=== PATIENT | male | born 1945 | race African-American/Black ===

== ENCOUNTER 2016-12-21 00:01 | Emergency (ER) | payer MEDICAID, MEDICARE ==
[~2016-12-21] VITALS: Ht 180.3 cm; Wt 90.0 kg
[2016-12-21 00:03] VITALS: Ht 180.3 cm; Wt 90.0 kg
[2016-12-21] MEDS ORDERED: ASPIRIN 81 MG TAB PO STA (00:39)
[2016-12-21 00:58] LABS: ADD SCAN DIFF NO
[2016-12-21 01:00] VITALS: BP 106/88; PULSE 60; RESP 16; TEMP 98
[2016-12-21 01:00] LABS: BASOPHILS % 0.6 % (0.0-2.0); EOSINOPHILS # 0.2 10^3/ul (0.0-0.5); EOSINOPHILS % 3.1 % (0.0-7.0); HEMATOCRIT 47.5 % (42.0-52.0); HEMOGLOBIN 15.4 g/dl (14.0-18.0); LYMPHOCYTES # 0.9 10^3/ul (0.8-2.9); LYMPHOCYTES % 19.7 % (15.0-51.0); MEAN CORPUSCULAR HEMOGLOBIN 31.7 pg (29.0-33.0); MEAN CORPUSCULAR HGB CONC 32.4 g/dl (32.0-37.0); MEAN CORPUSCULAR VOLUME 97.7 fl (82.0-101.0); MEAN PLATELET VOLUME 9.8 fl (7.4-10.4); MONOCYTE # 0.4 10^3/ul (0.3-0.9); NEUTROPHIL # 3.2 10^3/ul (1.6-7.5); NEUTROPHILS % 67.2 % (39.0-77.0); PLATELET COUNT 170 10^3/UL (140-415); RED BLOOD COUNT 4.86 10^6/ul (4.70-6.10); WHITE BLOOD COUNT 4.8 10^3/ul (4.8-10.8)
[2016-12-21 01:10] LABS: INR 1.02; PROTIME 13.4 Sec (12.2-14.2)
[2016-12-21 01:11] LABS: PARTIAL THROMBOPLASTIN TIME 27.7 Sec (25.0-35.0)
[2016-12-21 01:14] LABS: ALANINE AMINOTRANSFERASE 74 IU/L (13-69); ALBUMIN 4.6 g/dl (3.3-4.9); ALBUMIN/GLOBULIN RATIO 1.15; ALKALINE PHOSPHATASE 94 IU/L (42-121); ANION GAP 14 (8-16); ASPARTATE AMINO TRANSFERASE 107 IU/L (15-46); BILIRUBIN,INDIRECT 1.4 mg/dl (0-1.1); BILIRUBIN,TOTAL 1.4 mg/dl (0.2-1.3); BLOOD UREA NITROGEN 23 mg/dl (7-20); CALCIUM 9.1 mg/dl (8.4-10.2); CARBON DIOXIDE 24 mmol/L (21-31); CHLORIDE 102 mmol/L (97-110); CREATININE 1.92 mg/dl (0.61-1.24); GLUCOSE 129 mg/dl (70-220); POTASSIUM 4.8 mmol/L (3.5-5.1); SODIUM 135 mmol/L (135-144); TOTAL PROTEIN 8.6 g/dl (6.1-8.1)
[2016-12-21 01:26] LABS: B-TYPE NATRIURETIC PEPTIDE 1230 PG/ML (0-125)
[2016-12-21 01:30] LABS: TROPONIN-I < 0.012 ng/ml (0.00-0.12)
--- NOTE | 2016-12-21 01:49 | RADRPT ---
PROCEDURE: Chest. CLINICAL INDICATION: Chest pain. TECHNIQUE: Single frontal view of the chest was obtained. COMPARISON: None. FINDINGS: There is a left-sided pacemaker. The cardiac silhouette is enlarged. The aortic arch is unremarkab le. There is no focal consolidation, vascular congestion or pleural effusion. There is no pneumoth orax. IMPRESSION: Mild cardiomegaly. .Michi Cosby MD, MD Date Time Electronically viewed and signed by .Michi Cosby MD, MD on 12/21/2016 01:49 .T/
--- NOTE | 2016-12-21 01:55 | ERA ---
ER Documentation Chief Complaint Date/Time DATE: 12/21/16 TIME: 01:29 Chief Complaint Abdominal pain HPI 71-year-old male with an extensive cardiac history including multiple MIs with CHF with low ejection fraction s/p AICD presenting to the ER by ambulance after having an episode of nausea, dizziness, and diaphoresis. He was sitting in a restaurant with his when he suddenly felt ill. His states that he became really pale and looked like he was about to pass out. The patient denies any associated abdominal pain although this was listed as the chief complaint. He states that what he felt in his abdomen was nausea. He denies any associated chest pain or shortness of breath. He denies any headache. No recent fevers or chills. He is compliant with all of his medications. 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 Capps. ROS All systems reviewed and are negative except as per history of present illness. PMhx/Soc History of Surgery: No Anesthesia Reaction: No Hx Neurological Disorder: No Hx Respiratory Disorders: No Hx Cardiac Disorders: Yes (HTN, Stent 2, pacemaker,ACID) Hx Psychiatric Problems: No Hx Miscellaneous Medical Probl: No Hx Alcohol Use: No Hx Substance Use: No Hx Tobacco Use: No Smoking Status: Former smoker FmHx Family History: No diabetes Physical Exam Vitals Vital Signs Date Time Temp Pulse Resp B/P Pulse Ox O2 Delivery O2 Flow Rate FiO2 12/21/16 00:03 98.0 60 16 104/80 100 Physical Exam Const: Well-appearing, no apparent distress Head: Atraumatic Eyes: Normal Conjunctiva ENT: Normal External Ears, Nose and Mouth. Neck: Full range of motion. No meningismus. Resp: Coarse breath sounds bilaterally, expiratory wheezing throughout. Cardio: Regular rate and rhythm, no murmurs. 2+ radial pulses equal bilaterally Abd: Soft, non tender, non distended. Normal bowel sounds Skin: No petechiae or rashes Back: No midline or flank tenderness Ext: No cyanosis, or edema Neur: Awake and alert Psych: Normal Mood and Affect Result Diagram: 12/21/16 0005 12/21/16 0005 Results 24 hrs Laboratory Tests Test 12/21/16 00:05 White Blood Count 4.810^3/ul Red Blood Count 4.8610^6/ul Hemoglobin 15.4g/dl Hematocrit 47.5% Mean Corpuscular Volume 97.7fl Mean Corpuscular Hemoglobin 31.7pg Mean Corpuscular Hemoglobin Concent 32.4g/dl Red Cell Distribution Width 13.0% Platelet Count 12451^3/UL Mean Platelet Volume 9.8fl Neutrophils % 67.2% Lymphocytes % 19.7% Monocytes % 9.0% Eosinophils % 3.1% Basophils % 0.6% Nucleated Red Blood Cells % 0.0/100WBC Neutrophils # 3.210^3/ul Lymphocytes # 0.910^3/ul Monocytes # 0.410^3/ul Eosinophils # 0.210^3/ul Basophils # 0.010^3/ul Nucleated Red Blood Cells # 0.010^3/ul Prothrombin Time 13.4Sec Prothrombin Time Ratio 1.0 INR International Normalized Ratio 1.02 Activated Partial Thromboplast Time 27.7Sec Sodium Level 135mmol/L Potassium Level 4.8mmol/L Chloride Level 102mmol/L Carbon Dioxide Level 24mmol/L Anion Gap 14 Blood Urea Nitrogen 23mg/dl Creatinine 1.92mg/dl Glucose Level 129mg/dl Calcium Level 9.1mg/dl Total Bilirubin 1.4mg/dl Direct Bilirubin 0.00mg/dl Indirect Bilirubin 1.4mg/dl Aspartate Amino Transf (AST/SGOT) 107IU/L Alanine Aminotransferase (ALT/SGPT) 74IU/L Alkaline Phosphatase 94IU/L Troponin I < 0.012ng/ml B-Type Natriuretic Peptide 1230PG/ML Total Protein 8.6g/dl Albumin 4.6g/dl Globulin 4.00g/dl Albumin/Globulin Ratio 1.15 Current Medications Medications (Trade) Dose Ordered Sig/Jewell Route PRN Reason Start Time Stop Time Status Last Admin Dose Admin Aspirin (Aspirin) 162 mg ONCE STAT PO 12/21/16 00:39 12/21/16 00:41 DC 12/21/16 01:04 Procedures/[facility] EKG: Rate/Rhythm: AV sequential pacer at 60 bpm QRS, ST, T-waves: No changes consistent w/ acute ischemia Impression: No evidence of ischemia or arrhythmia Chest x-ray: Mild cardiomegaly Labs: Elevated liver enzymes, troponin normal, BNP elevated, creatinine and BUN elevated Patient is presenting with symptoms concerning for a cardiac etiology. Although he has no chest pain, his family states that he has not felt his previous heart attacks. Aspirin was given. He is hemodynamically stable, symptom-free and well-appearing at this time. Initial troponin was normal. EKG does not show ischemia but does show chronic changes. Further w/u for ischemia, arrhythmia, PE or dissection will be deferred to the inpatient team. Patient and his are requesting transfer to [facility] per preference. Prior to transfer, I was told that the patient and his eloped without signing an AMA form. Departure Diagnosis: Primary Impression: Dizziness Additional Impressions: Nausea Pre-syncope Condition: Serious MARIVEL BLOOM MD Dec 21, 2016 01:51
== END 2016-12-21 01:43 | disposition left against medical advice (07) ==
LOC: E/R 00:01
DX: R42 Dizziness and giddiness (principal); R11.0 Nausea; R55 Syncope and collapse; I10 Essential (primary) hypertension; Z87.891 Personal history of nicotine dependence; Z95.0 Presence of cardiac pacemaker; Z98.61 Coronary angioplasty status
CPT/HCPCS: 36415; 71010; 80053; 83880; 84484; 85025; 85610; 85730; 93005